=== PATIENT | female | born 1940 | race Caucasian/White ===

== ENCOUNTER 2016-12-03 11:05 | Day surgery (SDC) | payer MEDICARE ==
[~2016-12-03 11:05] MED LIST: Acetaminophen TAB* 325 MG PO PRN; Buffered Lidocaine 1% SYRIN* 3 ML/SYR SYRINGE INTRADERM ONE
[2016-12-03] MEDS ORDERED: Midazolam* 1 MG/ML 2 ML VIAL (2 MG) ONE ×2 (13:05→13:28)
[2016-12-03 13:46] VITALS: BP 159/56
[2016-12-03] MEDS ORDERED: Tetracaine 0.5% OPTH.SOL 4 ML* 1 DROP BTL ONE (13:48)
[2016-12-03] MEDS ORDERED: Cyclopentolate 1% OPTH.SOL* 2 ML BTL ONE (13:48)
[2016-12-03] MEDS ORDERED: Lidocaine 1% MPF* 2 ML VIAL ONE (13:48)
[2016-12-03] MEDS ORDERED: Neomycin/Polymy/Dex OPHTH.OIN* 3.5 GM ONE (13:48)
[2016-12-03] MEDS ORDERED: Tropicamide 1% OPTH.SOL* BTL ONE (13:48)
[2016-12-03] MEDS ORDERED: Flurbiprofen 0.03% OPTH.SOL* 2.5 ML BTL ONE (13:48)
[2016-12-03] MEDS ORDERED: Phenylephrine 2.5% OPTH.SOL* 2 ML BTL ONE (13:48)
--- NOTE | 2016-12-04 01:48 | OP ---
DATE OF OPERATION: 12/03/[address] [facility] DATE OF : 40 SURGEON: Dr. Cody Alford. VERIFICATION ENGINEER: None. ANESTHESIA: Topical with intravenous sedation. PRE-OP DIAGNOSIS: Cataract, right eye. POST-OP DIAGNOSIS: Cataract, right eye. OPERATIVE PROCEDURE: Phacoemulsification and cataract extraction with posterior chamber intraocular lens implant, right eye. COMPLICATIONS: None. BLOOD LOSS: None. DESCRIPTION OF PROCEDURE: The patient was brought to the operating room and received a small amount of intra-venous sedation. A drop of Tetracaine was placed in her right eye. She was prepped and draped in the usual sterile fashion for ophthalmic surgery and attention was directed to the right eye where a speculum was placed. A paracentesis was created at the 11 o'clock position and 0.1 cc of 1 percent preservative-free Lidocaine was injected into the anterior chamber followed by DisCoVisc. The eye was digitally stabilized while a 2.75 mm keratome was used to create a triplanar clear corneal incision at the 9 o'clock position. A continuous curvilinear capsulorrhexis was created with a cystotome and Utrata forceps. BSS on a cannula was used to hydrodissect the lens from the capsule. Phacoemulsification was performed in a divide-and- conquer technique to create four fragments which were removed. Residual cortical material was removed with irrigation and aspiration. DisCoVisc was used to inflate the capsular bag and an [id number] 17.5 diopter lens was folded and inserted into the capsular bag. DisCoVisc was removed using irrigation and aspiration. BSS on a cannula was used to hydrate the corneal stroma and seal the wound. At the end of the case the pupil was round and the lens was centered. The eye was of normal pressure and the wound was water tight. The speculum was removed and topical Maxitrol ointment was placed on the surface of the eye. The eye was closed, patched and shielded and the patient was sent to the recovery room in stable condition with post operative instructions and follow-up appointment given. [id number]/[facility] #: [id number] ALLEY
== END 2016-12-03 13:56 | disposition home or self-care (01) ==
LOC: OREAST 11:05
PROVIDERS: ATTEND Ophthalmology
DX: H25.11 Age-related nuclear cataract, right eye (principal); I10 Essential (primary) hypertension
CPT/HCPCS: A9270-GY; J2250; V2632

== ENCOUNTER 2019-07-27 13:08 | Inpatient (IN) | payer MEDICARE ==
--- NOTE | 2019-07-27 13:21 | ED ---
Complex/Multi-Sys Presentation - HPI Summary HPI Summary: This pt is a 79 y/o [facility] c /o feeling ill x4 days. Pt reports she has been watching her grandchildren and they all have the flu. She states she has SOB with fevers, max temperature of 100.4F. Additionally reports intermittent back pain. Denies sore throat. Per nurse's note, pt was at [facility] and was referred to the ED for low O2 sat. Her medications include Atenolol and medications for UC. She did receive the flu shot this year. Denies tobacco, drug, and alcohol use. Allergic to "something in Imodium." Medications reviewed. Allergies noted. - History Of Current Complaint Time Seen by Provider: 07/27/19 13:15 Hx Obtained From: Patient Onset/Duration: Lasting Days - 4, Still Present Timing: Days - 4 Severity Currently: Moderate Location: Negative Aggravating Factor(s): nothing Alleviating Factor(s): nothing Associated Signs And Symptoms: Positive: SOB, Fever. Negative: Other - NEGATIVE : sore throat - Allergies/Home Medications Allergies/Adverse Reactions: Allergies Allergy/AdvReac Type Severity Reaction Status Date / Time atropine [From Lomotil] Allergy Shakes Verified 07/27/19 13:36 bee venom protein (honey bee) Allergy Anaphylatic Verified 07/27/19 13:36 Shock diphenoxylate [From Lomotil] Allergy Shakes Verified 07/27/19 13:36 Home Medications: Home Medications Atenolol TAB* [Tenormin TAB* 25 MG] 25 mg PO QAM 07/27/19 [History Confirmed ] Atenolol TAB* [Tenormin TAB* 25 MG] 50 mg PO QPM 07/27/19 [History Confirmed ] Ranitidine TAB (NF) [Zantac TAB (NF)] 150 mg PO BID 07/27/19 [History Confirmed 07/27/19] sulfaSALAzine TAB* [Azulfidine TAB*] 1,000 mg PO TID 07/27/19 [History Confirmed 07/27/19] PMH/Surg Hx/FS Hx/Imm Hx Cardiovascular History: Reports: Hx Hypertension - controlled with medication, Other Cardiovascular Problems/Disorders - COPD GI History: Reports: Hx Gastroesophageal Reflux Disease, Other GI Disorders - ulcerative colitis Musculoskeletal History: Reports: Hx Arthritis - generalized, Other Musculoskeletal History - Rsvhlnb-Gknje-Jycab disease Sensory History: Reports: Hx Cataracts, Hx Contacts or Glasses - reading, but not using currently, waiting for cataract surgery, Hx Hearing Aid - does not always wear Denies: Hx Glaucoma Opthamlomology History: Reports: Hx Cataracts, Hx Contacts or Glasses - reading , but not using currently, waiting for cataract surgery Denies: Hx Glaucoma Neurological History: Reports: Hx Nerve Disease - Uqjivxu-Bzxly-Wcdit disease Psychiatric History: Reports: Hx Anxiety - does not take medication - Cancer History Cancer Type, 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 cholecystectomy. appendectomy. unsure of dates for these surgeries Hx Anesthesia Reactions: No - Immunization History Date of Tetanus Vaccine: UNK Date of Influenza Vaccine: 2012 Infectious Disease History: No Infectious Disease History: Reports: Hx Shingles - 2012 Denies: Traveled Outside the [place] in Last 30 Days - Family History Known Family History: Positive: Cardiac Disease Family History: Cancer - Social History Alcohol Use: None Substance Use Type: Reports: None Smoking Status (MU): Never Smoked Tobacco Review of Systems Positive: Fever Negative: Sore Throat Positive: Shortness Of Breath Musculoskeletal: Other - POSITIVE: back pain All Other Systems Reviewed And Are Negative: Yes Physical Exam - Summary Physical Exam Summary: Constitutional: Well-developed, Well-nourished, Alert. (-) Distressed Skin: Warm, Dry HENT: Normocephalic; Atraumatic Eyes: Conjunctiva normal Neck: Musculoskeletal ROM normal neck. (-) JVD, (-) Stridor, (-) Tracheal deviation Cardio: Rhythm regular, rate normal, Heart sounds normal; Intact distal pulses; The pedal pulses are 2+ and symmetric. Radial pulses are 2+ and symmetric. (-) Murmur Pulmonary/Chest wall: Poor inspiratory effort. Coarse lung sounds on the left side. Patient is saturating at 85% on room air. She is speaking in full sentences. Abd: Soft, (-) tenderness, (-) Distension, (-) Guarding, (-) Rebound Musculoskeletal: (-) Edema Lymph: (-) Cervical adenopathy Neuro: Alert, Oriented x3 Psych: Mood and affect Normal Triage Information Reviewed: Yes Vital Signs On Initial Exam: Initial Vitals Temp Pulse Resp BP Pulse Ox 100.0 F 59 18 0/0 86 07/27/19 13:12 07/27/19 13:12 07/27/19 13:12 07/27/19 13:12 07/27/19 13:12 Vital Signs Reviewed: Yes Procedures - Sedation Patient Received Moderate/Deep Sedation with Procedure: No Diagnostics - Vital Signs Vital Signs Temp Pulse Resp BP Pulse Ox 07/27/19 13:12 100.0 F 59 18 0/0 86 - Laboratory Result Diagrams: 07/27/19 13:43 07/27/19 13:42 Lab Statement: Any lab studies that have been ordered have been reviewed, and results considered in the medical decision making process. - Radiology Chest XR Radiology Interpretation Completed By: Radiologist Summary of Radiographic Findings: IMPRESSION: No active cardiopulmonary disease is noted. Dr. Oseguera has reviewed this report. - CT Chest CTA CT Interpretation Completed By: Radiologist Summary of CT Findings: IMPRESSION: No pulmonary embolus or aortic dissection is noted. Peribronchial thickening with areas of nodular consolidation are noted throughout the lung bases bilaterally worse on the left on the right as well as in the lingula and right middle lobe. The possibility of bronchopneumonia should BE considered. Calcified granuloma in the right middle lobe. Dr. Oseguera has reviewed this report. - EKG 13:29 Cardiac Rate: Bradycardia - at 58 bpm EKG Rhythm: Sinus Bradycardia Summary of EKG Findings: EKG at 1329 shows sinus bradycardia at a rate of 58 bpm. No evidence of ischemia. Complex Multi-Symp Course/Dx Course Of Treatment: Patient is here with URI symptoms and hypoxemia. Patient was placed on oxygen which is atypical for her. Patient had a chest x-ray which showed no acute abnormality. Patient had blood work performed which was overall grossly unremarkable. Due to her hypoxemia, a CTA was performed which did not show any PE but did show an underlying bronchopneumonia. Patient was given Rocephin and azithromycin and admitted to the hospitalist. - Diagnoses Provider Diagnoses: Pneumonia, Hypoxemia - Physician Notifications Discussed Care Of Patient With: Dell El - hospitalist Time Discussed With Above Provider: 15:59 Instructed by Provider To: Admit As Inpatient Discharge ED - Sign-Out/Discharge Documenting (check all that apply): Patient Departure - Admit to [facility] - Discharge Plan Condition: Stable Disposition: ADMITTED TO [facility] - Billing Disposition and Condition Condition: STABLE Disposition: Admitted to [facility] - Attestation Statements Document Initiated by Jeny: Yes Documenting Scribe: Karma Valdez Provider For Whom Jeny is Documenting (Include Credential): Ancelmo Oseguera MD Scribe Attestation: Karma Patel, scribed for Ancelmo Oseguera MD on 07/27/19 at 1730. Scribe Documentation Reviewed: Yes Provider Attestation: The documentation as recorded by the Karma lopez accurately reflects the service I personally performed and the decisions made by me, Ancelmo Oseguera MD Status of Scribe Document: Viewed
[2019-07-27 14:08] LABS: Hematocrit 43 % (35-47); Hemoglobin 14.6 g/dL (12.0-16.0); Mean Corpuscular HGB Conc 34 g/dL (31-36); Mean Corpuscular Hemoglobin 30 pg (27-31); Mean Corpuscular Volume 87 fL (80-97); Red Blood Count 4.89 10^6 /uL (3.70-4.87); Red Cell Distribution Width 14 % (10-15); White Blood Count 5.4 10^3/uL (3.5-10.8)
[2019-07-27 14:13] LABS: ABS Lymphocytes 0.4 10^3/ul (1.0-4.8); ABS Monocytes 0.4 10^3/ul (0-0.8); ABS Neutrophils 4.6 10^3/ul (1.5-7.7); Lymphocyte % 6.5 %
[2019-07-27 14:16] LABS: Albumin 4.4 g/dL (3.2-5.2); Albumin/Globulin Ratio 1.6 (1-3); BUN/Creatinine Ratio 27.4 (8-20); EGFR African American 112.4 (>60); EGFR Non-African American 92.9 (>60); Globulin 2.8 g/dL (2-4); Potassium 4.3 mmol/L (3.5-5.0); Total Bilirubin 1.2 mg/dL (0.2-1.0); Total Protein 7.2 g/dL (6.4-8.9); Troponin I 0.01 ng/mL (<0.03)
[2019-07-27 14:19] LABS: Influenza A Molecular NEGATIVE (Negative); Influenza B Molecular NEGATIVE (Negative)
[2019-07-27 14:33] LABS: Mean Platelet Volume 8.6 fL (7.4-10.4); Platelet Count 78 10^3/uL (150-450)
[2019-07-27] MEDS ORDERED: Iohexol 350* (CONTRAST) 500 ML MDV IV ONE (14:56)
[2019-07-27] MEDS ORDERED: NS 0.9% 1000 ML** 1,000 ML IV ONE (15:00)
[2019-07-27] MEDS ORDERED: Albuterol 2.5 MG/3 ML NEB.SOL* (0.083%) INH ONE (15:27)
[2019-07-27] MEDS ORDERED: Azithromycin 500 mg/250 ml NS 500 MG/250 ML BAG IVPB ONE (15:56)
[2019-07-27] MEDS ORDERED: cefTRIAXone(*) 1 GM in NS 0.9% 50 ML* 50 ML IVPB ONE (15:56)
[2019-07-27] MEDS ORDERED: Ondansetron INJ* 2 MG/ML VIAL IV PRN (16:59)
[2019-07-27] MEDS ORDERED: Al Hydrox/Mg Hydrox/Simet LIQ* 30 ML UDC PO PRN (16:59)
[2019-07-27] MEDS ORDERED: Senna TAB 8.6 mg* TAB PO PRN (16:59)
[2019-07-27] MEDS ORDERED: Acetaminophen TAB* 325 MG PO PRN (16:59)
[2019-07-27] MEDS ORDERED: Acetaminophen TAB* 325 MG PO ONE (17:02)
[2019-07-27 18:52] LABS: Urine Appearance Cloudy; Urine Bilirubin Negative (Negative); Urine Blood Negative (Negative); Urine Color Amber; Urine Glucose Negative (Negative); Urine Ketones 1+ (Negative); Urine Nitrite Negative (Negative); Urine Protein 1+(30 mg/dL) (Negative); Urine Urobilinogen Negative (Negative)
[2019-07-27 18:58] LABS: Urine Bacteria 1+ (Absent); Urine Red Blood Cell Absent (Absent); Urine Squamous Epithelial Cell Present (Absent); Urine White Blood Cell Absent (Absent)
[2019-07-27] MEDS: Enoxaparin(*) 40 MG/0.4 ML SYR SUBCUT SCH (19:27)
--- NOTE | 2019-07-27 21:34 | HP ---
CC: Dr. Fitzpatrick* ADMISSION HISTORY AND PHYSICAL: DATE OF ADMISSION: 07/27/19 PROVIDER: LUCAS Caldera ATTENDING PHYSICIAN WHILE IN THE HOSPITAL: Dr. Dell El MD* (dictated by LUCAS Caldera). PRIMARY CARE PROVIDER: Dr. Fitzpatrick. CHIEF COMPLAINT: Shortness of breath. HISTORY OF PRESENT ILLNESS: Mary Buchanan is a 79-year-old white female with a past medical history significant for hypertension, GERD, ulcerative colitis, and Ofrbasd-Dzutd-Bpxwi disease, who presented to urgent care initially today due to shortness of breath. The patient was found to be hypoxic in the office and was advised to proceed to emergency department. The patient remained hypoxic in the emergency department as well, and initially nursing notes demonstrates she had an oxygen saturation 83% on room air. The patient was not initially dyspneic, but was given an albuterol nebulizer and she does feel short of breath after this at the time of my evaluation. The patient told me she had a temperature of 101.4 degrees yesterday at home. She had been feeling symptomatic fever or chills alternatively for the last 3 days. She has had a cough and has been feeling "yucky" for the last 3 days. She has been feeling short of breath and with rib pain with the cough for the last 2 days. She did feel nausea intermittently, but has not vomited and denies diarrhea. She did have a loose bowel movement with mucus today. Her grandchild and great grandchildren live with her and they have all had upper respiratory infections last week, therefore she has had multiple sick contacts. She denies nasal congestion, chest pain, dizziness, lightheadedness, visual changes or abdominal pain. EMERGENCY DEPARTMENT COURSE: The patient arrived to the emergency department. Her temperature was 100.0 degrees Fahrenheit, pulse of 59, respiratory rate 18, oxygen saturation 86% on room air, blood pressure 206/58, later 162/82. She was tachypneic at some point with respiratory rate of 28; however, this has since resolved. She had a CTA, which is negative for pulmonary embolism, but did demonstrate pneumonia and therefore the hospitalists were asked to evaluate the patient for admission. PAST MEDICAL HISTORY: 1. Hypertension. 2. GERD. 3. Ulcerative colitis. 4. Ynesjrr-Oskes-Bipne disease. 5. Heart failure, preserved ejection fraction. 6. Pituitary adenoma, status post pituitectomy. PAST SURGICAL HISTORY: 1. Pituitectomy. 2. Bilateral cataract surgery. 3. Left hip fracture. 4. Appendectomy. 5. Hysterectomy. MEDICATIONS: 1. Ranitidine 150 mg p.o. b.i.d. 2. Sulfasalazine 1000 mg p.o. t.i.d. 3. Atenolol 25 mg p.o. q.a.m., 50 mg p.o. q.p.m. ALLERGIES: 1. Reaction of shakes to LOMOTIL. 2. Anaphylactic shock to honeybees. FAMILY HISTORY: Her mother at age 48 due to cardiovascular disease. Her father at age 62 due to malignant melanoma. Recently, her brother has due to an SD. SOCIAL HISTORY: The patient's grandchild and great grandchildren live with her. She is retired nurse. She is a . She denies smoking, alcohol or illicit drug use. She has never been a smoker. REVIEW OF SYSTEMS: An 11-point review of systems was completed and all pertinent positives and negatives are above in the HPI. All other systems are negative. PHYSICAL EXAMINATION GENERAL: Elderly white female, lying in hospital bed, appearing comfortable, in no acute distress. HEENT: Eyes: PERRL. Sclerae anicteric. ENT: Lips appear dry. NECK: Supple without JVD. LUNGS: Crackles in bilateral lung bases and mid lung peters with rhonchi in the anterior peters. The patient is respiring without use of accessory muscles. CARDIO: Regular rate and rhythm without murmurs, rubs or gallops appreciated. ABDOMEN: Soft, nontender, nondistended. EXTREMITIES: No clubbing, cyanosis or edema. Bilateral lower extremities are in braces. NEURO: The patient is alert and oriented x3. No focal deficits. Able to move all extremities. SKIN: Warm, dry, and intact. DIAGNOSTIC STUDIES/LAB DATA: White blood cell count 5.4, hemoglobin 14.6, hematocrit 43, platelet count 78. Sodium 136, potassium 4.3, chloride 100, carbon dioxide 28, anion gap 8, BUN 17, creatinine 0.62, glucose 126. Lactic acid 1.9, calcium 10, bilirubin 1.2, AST 28, ALT 16. Troponin 0.01. Influenza A negative. Influenza B negative. Chest x-ray: No active cardiopulmonary disease is noted. Chest/thorax CTA: No pulmonary embolism or aortic dissection is noted. Peribronchial thickening with areas of nodular consolidation are noted throughout the lung bases bilaterally, worse on the left than the right as well as lingula in the right middle lobe. Possibility of bronchopneumonia should be considered. Calcified granuloma in the right middle lobe. EKG: Normal sinus rhythm with a rate of 58 beats per minute. No ST elevations or depressions or T-wave inversions. Normal axis. ASSESSMENT AND PLAN: Mary Buchanan is a 79-year-old white female with past medical history significant for heart failure with preserved ejection fraction, Cvcyphu-Hotcr-Zvuoh disease, ulcerative colitis, and hypertension, who presented to the emergency department due to shortness of breath and hypoxemia found at urgent care. The patient will be admitted inpatient for: 1. Acute respiratory failure. The patient is noted to have hypoxia initially at 83% on room air. She is now using 3 L of oxygen and is having good oxygen saturations. She did receive an albuterol nebulizer in the emergency department and my evaluation was after this treatment, and her lungs sounds did still have some crackles and rhonchi, which was consistent with pneumonia found on CTA. Pulmonary embolism has been ruled out. She has received empiric ceftriaxone and azithromycin in the emergency department, I will continue this tomorrow. She does not meet SIRS criteria for her pneumonia at this time, but we will closely monitor her. She was tachypneic, but she does not have leukocytosis and her temperature is not a fever at this point. I will order p.r.n. DuoNeb. The patient already received 1 L of fluid in the emergency department. I do not believe she needs any further fluid at this time. The patient had a negative influenza A and B. 2. Thrombocytopenia. The patient has a platelet count of 78. 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 It is unclear whether she has been diagnosed with a myelodysplastic syndrome. We will monitor this again tomorrow. It is possible that she has a reactive thrombocytopenia to her infection. 3. Hypertension. I will continue the patient's home atenolol. 4. Ulcerative colitis. The patient did have a bowel movement with mucus in it today, however, no blood. She will continue her home sulfasalazine. We will continue to monitor this. 5. Gastroesophageal reflux disease. Continue the patient's home H2A romeo. 6. FEN: The patient does not need any electrolyte depletion. No further fluids are needed at this time; however, we will continue to monitor her blood pressure and if hydration is needed, we will assess at that time. The patient may have regular unrestricted diet. 7. Code status: The patient is a full code. 8. DVT prophylaxis. The patient has a DVT risk score of 3. I will order subcutaneous Lovenox 40 mg. TIME SPENT: This admission took approximately 45 minutes; half of this time was spent at bedside evaluating the patient, discussing plan of care. This case has been reviewed by my attending Dr. Dell El, he agrees with plan of care. LUCAS CALDERA [id number]/[facility] #: [id number] [place]
[2019-07-27] MEDS: Albuterol/Ipratropium NEB.SOL* Albuterol 2.5 MG/Ipratropium 0.5 MG 3 ML INH PRN (23:17)
[2019-07-28 05:41] LABS: ABS Lymphocytes 0.6 10^3/ul (1.0-4.8); ABS Monocytes 0.5 10^3/ul (0-0.8); ABS Neutrophils 4.3 10^3/ul (1.5-7.7); Hematocrit 36 % (35-47); Hemoglobin 12.2 g/dL (12.0-16.0); Lymphocyte % 11.3 %; Mean Corpuscular HGB Conc 34 g/dL (31-36); Mean Corpuscular Hemoglobin 30 pg (27-31); Mean Corpuscular Volume 89 fL (80-97); Mean Platelet Volume 8.9 fL (7.4-10.4); Platelet Count 55 10^3/uL (150-450); Red Blood Count 4.06 10^6 /uL (3.70-4.87); Red Cell Distribution Width 14 % (10-15); White Blood Count 5.4 10^3/uL (3.5-10.8)
[2019-07-28 05:48] LABS: BUN/Creatinine Ratio 28.1 (8-20); Calcium 8.9 mg/dL (8.6-10.3); EGFR African American 108.3 (>60); EGFR Non-African American 89.5 (>60); Potassium 3.8 mmol/L (3.5-5.0)
[2019-07-28] MEDS: cefTRIAXone(*) 1 GM in NS 0.9% 50 ML* 50 ML IVPB SCH (08:14)
[2019-07-28] MEDS: Azithromycin IV(*) 250 MG in NS 0.9% 250 ML* 250 ML IVPB SCH (09:10)
[2019-07-28 09:53] LABS: Total Bilirubin 1.3 mg/dL (0.2-1.0)
[2019-07-28] MEDS: Albuterol/Ipratropium NEB.SOL* Albuterol 2.5 MG/Ipratropium 0.5 MG 3 ML INH PRN (10:40)
--- NOTE | 2019-07-28 11:28 | PN ---
Subjective Date of Service: 07/28/19 Interval History: Patient feels her shortness of breath and cough are not improved. She still feels tired. Her cough is not productive. She denies fever/chills, chest pain, abd pain. Objective Active Medications: Acetaminophen (Tylenol Tab*) 650 mg PO Q4H PRN PRN Reason: MILD PAIN or TEMP > 100.4 Last Admin: 07/27/19 23:09 Dose: 650 mg Al Hydrox/Mg Hydrox/Simethicone (Maalox Plus*) 30 ml PO Q6H PRN PRN Reason: INDIGESTION Albuterol/Ipratropium (Duoneb (Albuterol 2.5 Mg/Ipratropium 0.5 Mg)) 1 neb INH Q4H PRN PRN Reason: SOB/WHEEZING Last Admin: 07/28/19 10:40 Dose: 1 neb Enoxaparin Sodium (Lovenox(*)) 40 mg SUBCUT Q24H COUNT INCLUDES THE [facility] Last Admin: 07/27/19 19:27 Dose: 40 mg Azithromycin 250 mg/ Sodium (Chloride) 250 mls @ 250 mls/hr IVPB Q24H S[place] Last Admin: 07/28/19 09:10 Dose: 250 mls/hr Ceftriaxone Sodium 1 gm/ (Sodium Chloride) 50 mls @ 100 mls/hr IVPB Q24H COUNT INCLUDES THE [facility] Last Admin: 07/28/19 08:14 Dose: 100 mls/hr Ondansetron HCl (Zofran Inj*) 4 mg IV Q4H PRN PRN Reason: NAUSEA/VOMITING Last Admin: 07/27/19 17:41 Dose: 4 mg Senna (Senokot 8.6 Mg Tab*) 1 tab PO BID PRN PRN Reason: CONSTIPATION Vital Signs - 8 hr 07/28/19 07/28/19 07/28/19 03:55 07:35 10:42 Temperature 98.7 F 99.5 F Pulse Rate 83 92 90 Respiratory 18 24 17 Rate Blood Pressure 102/31 114/44 (mmHg) O2 Sat by Pulse 93 93 91 Oximetry Oxygen Devices in Use Now: Nasal Cannula Appearance: Elderly white female, laying in hospital bed, appearing comfortable and in NAD Eyes: No Scleral Icterus, - - PERRL Ears/Nose/Mouth/Throat: Mucous Membranes Moist Neck: Trachea Midline Respiratory: Symmetrical Chest Expansion and Respiratory Effort, - - bilateral lung base crackles and wheezing; wheezing anteriorly throughout as well; not using accessory muscles with respiraitons Cardiovascular: NL Sounds; No Murmurs; No JVD, RRR Abdominal: - - abd soft, nontender, nondistended Extremities: No Edema, No Clubbing, Cyanosis Skin: No Rash or Ulcers Neurological: Alert and Oriented x 3, NL Muscle Strength and Tone Result Diagrams: 07/28/19 04:27 07/28/19 04:27 Microbiology and Other Data: Microbiology 07/27/19 18:40 Legionella Urinary Antigen - Final Urine Negative Legionella Antigen Streptococcus pneumoniae Ag Screen - Final Negative S. pneumo Antigen Assess/Plan/Problems-Billing Assessment: 79 yo female with PMHx HTN, UC, Xbsqted-Shkqe-Eedwr disease presents with shortness of breath and found to have pneumonia. - Patient Problems (1) Pneumonia Current Visit: Yes Status: Acute Code(s): J18.9 - PNEUMONIA, UNSPECIFIED ORGANISM SNOMED Code(s): 535370526 Comment: -CAP with multiple sick contacts at home. -Influenza negative, urine antigens negative for strep pneumo and legionella, unable to obtain sputum culture -fever to 100.6 overnight, patient does not meet SIRS criteria -remains hypoxic today -continue ceftriaxone and azithromycin -patient does have some wheezing on exam; scheduled duonebs instead of prn -prn robitussin (2) HTN (hypertension) Current Visit: Yes Status: Acute Code(s): I10 - ESSENTIAL (PRIMARY) HYPERTENSION SNOMED Code(s): 14541060 Comment: -continue atenolol (3) Iyvbzkg-Zsepa-Vxyss disease Current Visit: Yes Status: Acute Comment: -supportive care (4) Ulcerative colitis Current Visit: Yes Status: Acute Code(s): K51.90 - ULCERATIVE COLITIS, UNSPECIFIED, WITHOUT COMPLICATIONS SNOMED Code(s): 26924561 Comment: -continue home sulfasalazine (5) (HFpEF) heart failure with preserved ejection fraction Current Visit: Yes Status: Acute Code(s): I50.30 - UNSPECIFIED DIASTOLIC ( CONGESTIVE) HEART FAILURE SNOMED Code(s): 513489488 Comment: -patient is euvolemic (6) DVT prophylaxis Current Visit: Yes Status: Acute Code(s): Z29.9 - ENCOUNTER FOR PROPHYLACTIC MEASURES, UNSPECIFIED SNOMED Code(s): 797580600 Comment: -lovenox (7) Full code status Current Visit: Yes Status: Acute Code(s): Z78.9 - OTHER SPECIFIED HEALTH STATUS SNOMED Code(s): 812502630 Status and Disposition: anticipate d/c home when medically stable
[2019-07-28] MEDS: Potassium Chlor TAB* 10 MEQ TAB.ER PO SCH (13:12)
[2019-07-28] MEDS: Magnesium Oxide TAB* 400 MG PO SCH (13:12)
[2019-07-28] MEDS: sulfaSALAzine TAB* 500 MG PO SCH ×2 (13:13→21:40)
[2019-07-28] MEDS ORDERED: Albuterol/Ipratropium NEB.SOL* Albuterol 2.5 MG/Ipratropium 0.5 MG 3 ML INH PRN (14:42)
[2019-07-28] MEDS: Enoxaparin(*) 40 MG/0.4 ML SYR SUBCUT SCH (17:00)
[2019-07-28] MEDS ORDERED: Atenolol TAB* 25 MG PO SCH (18:00)
[2019-07-28] MEDS: Atenolol TAB* 25 MG PO SCH (21:39)
[2019-07-28] MEDS: Famotidine TAB* 20 MG PO SCH (21:39)
[2019-07-29] MEDS: cefTRIAXone(*) 1 GM in NS 0.9% 50 ML* 50 ML IVPB SCH (08:15)
[2019-07-29] MEDS: Magnesium Oxide TAB* 400 MG PO SCH (08:16)
[2019-07-29] MEDS: Cholecalciferol TAB* 1000 UNITS PO SCH (08:17)
[2019-07-29] MEDS: Famotidine TAB* 20 MG PO SCH ×2 (08:17→20:57)
[2019-07-29] MEDS: Potassium Chlor TAB* 10 MEQ TAB.ER PO SCH (08:17)
[2019-07-29] MEDS: sulfaSALAzine TAB* 500 MG PO SCH ×3 (08:17→16:11)
[2019-07-29] MEDS: Atenolol TAB* 25 MG PO SCH ×2 (08:18→20:58)
[2019-07-29] MEDS ORDERED: Atenolol TAB* 25 MG PO SCH (09:00)
[2019-07-29] MEDS: Azithromycin IV(*) 250 MG in NS 0.9% 250 ML* 250 ML IVPB SCH (09:01)
[2019-07-29] MEDS: Lactobacillus Acidophilus* 1 TAB PO SCH (12:25)
[2019-07-29] MEDS: predniSONE TAB* 20 MG PO SCH (12:25)
[2019-07-29] MEDS: guaiFENesin 100 mg/5 ml LIQ unit dose cup PO PRN ×2 (16:11→20:57)
[2019-07-29] MEDS: Enoxaparin(*) 40 MG/0.4 ML SYR SUBCUT SCH (16:12)
--- NOTE | 2019-07-29 17:23 | PN ---
Subjective Date of Service: 07/29/19 Interval History: Patient is feeling somewhat better today. Patient is feeling persistently SOB and feels tight with her breathing. This improved with breathing treatment and steroids. Patient has been having loose bowel movements without blood, abdominal pain, or tenderness. Patient denies CP, Dizziness, N/V, dysuria, or other pain. Family History: Unchanged from Admission Social History: Unchanged from Admission Past Medical History: Unchanged from Admission Objective Active Medications: Acetaminophen (Tylenol Tab*) 650 mg PO Q4H PRN PRN Reason: MILD PAIN or TEMP > 100.4 Last Admin: 07/27/19 23:09 Dose: 650 mg Al Hydrox/Mg Hydrox/Simethicone (Maalox Plus*) 30 ml PO Q6H PRN PRN Reason: INDIGESTION Albuterol/Ipratropium (Duoneb (Albuterol 2.5 Mg/Ipratropium 0.5 Mg)) 1 neb INH Q6H PRN PRN Reason: SOB/WHEEZING Last Admin: 07/29/19 12:08 Dose: 1 neb Atenolol (Tenormin Tab*) 25 mg PO BID [facility] Last Admin: 07/29/19 08:18 Dose: Not Given Cholecalciferol (Vitamin D Tab*) 5,000 units PO DAILY [facility] Last Admin: 07/29/19 08:17 Dose: 5,000 units Enoxaparin Sodium (Lovenox(*)) 40 mg SUBCUT Q24H [facility] Last Admin: 07/29/19 16:12 Dose: 40 mg Famotidine (Pepcid Tab*) 20 mg PO BID [facility]; Protocol Last Admin: 07/29/19 08:17 Dose: 20 mg Guaifenesin (Robitussin 100 Mg/5ml Liq) 5 ml PO Q4H PRN PRN Reason: COUGH Last Admin: 07/29/19 16:11 Dose: 5 ml Azithromycin 250 mg/ Sodium (Chloride) 250 mls @ 250 mls/hr IVPB Q24H [facility] Last Admin: 07/29/19 09:01 Dose: 250 mls/hr Ceftriaxone Sodium 1 gm/ (Sodium Chloride) 50 mls @ 100 mls/hr IVPB Q24H [facility] Last Admin: 07/29/19 08:15 Dose: 100 mls/hr Lactobacillus Rhamnosus (Lactobacillus Acidophilus*) 1 tab PO DAILY [facility] Last Admin: 07/29/19 12:25 Dose: 1 tab Magnesium Oxide (Magox 400 Tab*) 200 mg PO DAILY [facility] Last Admin: 07/29/19 08:16 Dose: 200 mg Ondansetron HCl (Zofran Inj*) 4 mg IV Q4H PRN PRN Reason: NAUSEA/VOMITING Last Admin: 07/27/19 17:41 Dose: 4 mg Potassium Chloride (Klor Con Er Tab*) 10 meq PO DAILY [facility] Last Admin: 07/29/19 08:17 Dose: 10 meq Prednisone (Deltasone Tab*) 40 mg PO DAILY [facility] Last Admin: 07/29/19 12:25 Dose: 40 mg Senna (Senokot 8.6 Mg Tab*) 1 tab PO BID PRN PRN Reason: CONSTIPATION Sulfasalazine (Azulfidine Tab*) 1,000 mg PO TID WITH MEALS [facility] Last Admin: 07/29/19 16:11 Dose: 1,000 mg Vital Signs - 8 hr 07/29/19 07/29/19 07/29/19 10:12 11:11 12:22 Temperature 98.2 F Pulse Rate 85 82 Respiratory 18 15 Rate Blood Pressure 135/62 (mmHg) O2 Sat by Pulse 91 91 94 Oximetry 07/29/19 15:15 Temperature 98.5 F Pulse Rate 72 Respiratory 18 Rate Blood Pressure 128/39 (mmHg) O2 Sat by Pulse 92 Oximetry Oxygen Devices in Use Now: None Appearance: Patient is a 79yo female who appears stated age and is sitting in the bed in [facility]. Eyes: No Scleral Icterus, PERRLA Ears/Nose/Mouth/Throat: NL Teeth, Lips, Gums, Clear Oropharnyx, Mucous Membranes Moist Neck: NL Appearance and Movements; NL JVP, Trachea Midline Respiratory: Symmetrical Chest Expansion and Respiratory Effort, - - Slight expiratory wheezing and prolonged expiratory phase. Decreased air exchange. Cardiovascular: NL Sounds; No Murmurs; No JVD, RRR, No Edema Abdominal: NL Sounds; No Tenderness; No Distention, No Hepatosplenomegaly Lymphatic: No Cervical Adenopathy Extremities: No Edema, No Clubbing, Cyanosis Skin: No Rash or Ulcers, No Nodules or Sclerosis Neurological: Alert and Oriented x 3, NL Sensation, NL Gait, NL Muscle Strength and Tone, - - CN II-XII intact. Result Diagrams: 07/28/19 04:27 07/28/19 04:27 Microbiology and Other Data: Microbiology 07/27/19 18:40 Legionella Urinary Antigen - Final Urine Negative Legionella Antigen Streptococcus pneumoniae Ag Screen - Final Negative S. pneumo Antigen Assess/Plan/Problems-Billing Assessment: 79 yo female with PMHx HTN, UC, Xgslquo-Foppl-Nzujl disease presents with shortness of breath and found to have pneumonia. - Patient Problems (1) Pneumonia Current Visit: Yes Status: Acute Code(s): J18.9 - PNEUMONIA, UNSPECIFIED ORGANISM SNOMED Code(s): 848693853 Comment: -CAP with multiple sick contacts at home. -Influenza negative, urine antigens negative for strep pneumo and legionella, unable to obtain sputum culture - Remains hypoxic today with activity and SOB - Continue ceftriaxone and azithromycin - Persistent wheezing on exam, start steroids and continue scheduled duonebs. - PRN robitussin - Start Probiotics for antibiotic associated diarrhea. (2) Qkuifgd-Kksdg-Zgrkz disease Current Visit: Yes Status: Acute Comment: - Supportive care - Foot Braces (3) HTN (hypertension) Current Visit: Yes Status: Acute Code(s): I10 - ESSENTIAL (PRIMARY) HYPERTENSION SNOMED Code(s): 76670970 Comment: - Normotensive - Continue atenolol (4) (HFpEF) heart failure with preserved ejection fraction Current Visit: Yes Status: Acute Code(s): I50.30 - UNSPECIFIED DIASTOLIC ( CONGESTIVE) HEART FAILURE SNOMED Code(s): 639380287 Comment: - No signs of exacerbation. - Appears Euvolemic (5) Ulcerative colitis Current Visit: Yes Status: Acute Code(s): K51.90 - ULCERATIVE COLITIS, UNSPECIFIED, WITHOUT COMPLICATIONS SNOMED Code(s): 45078132 Comment: - Continue Sulfasalazine - Diarrhea very unlikely related to flare. (6) DVT prophylaxis Current Visit: Yes Status: Acute Code(s): Z29.9 - ENCOUNTER FOR PROPHYLACTIC MEASURES, UNSPECIFIED SNOMED Code(s): 619144497 Comment: - Lovenox (7) Full code status Current Visit: Yes Status: Acute Code(s): Z78.9 - OTHER SPECIFIED HEALTH STATUS SNOMED Code(s): 888110408 Status and Disposition: anticipate d/c home when medically stable
[2019-07-29] MEDS: Bismuth Subsalicylate* 524 MG/30 ML BTL PO PRN (20:58)
[2019-07-30 05:12] LABS: ABS Lymphocytes 0.3 10^3/ul (1.0-4.8); ABS Monocytes 0.1 10^3/ul (0-0.8); ABS Neutrophils 1.5 10^3/ul (1.5-7.7); Hematocrit 34 % (35-47); Hemoglobin 11.4 g/dL (12.0-16.0); Lymphocyte % 13.9 %; Mean Corpuscular HGB Conc 34 g/dL (31-36); Mean Corpuscular Hemoglobin 29 pg (27-31); Mean Corpuscular Volume 86 fL (80-97); Mean Platelet Volume 9.1 fL (7.4-10.4); Platelet Count 53 10^3/uL (150-450); Red Blood Count 3.91 10^6 /uL (3.70-4.87); Red Cell Distribution Width 13 % (10-15)
[2019-07-30 05:26] LABS: BUN/Creatinine Ratio 35.7 (8-20); EGFR African American 176.1 (>60); EGFR Non-African American 145.5 (>60); Magnesium 2.1 mg/dL (1.9-2.7); Potassium 4.2 mmol/L (3.5-5.0)
[2019-07-30] MEDS: Bismuth Subsalicylate* 524 MG/30 ML BTL PO PRN (07:14)
[2019-07-30 07:48] VITALS: BP 155/50
[2019-07-30] MEDS: cefTRIAXone(*) 1 GM in NS 0.9% 50 ML* 50 ML IVPB SCH (07:52)
[2019-07-30] MEDS: Famotidine TAB* 20 MG PO SCH (07:57)
[2019-07-30] MEDS: Lactobacillus Acidophilus* 1 TAB PO SCH (07:57)
[2019-07-30] MEDS: Magnesium Oxide TAB* 400 MG PO SCH (07:58)
[2019-07-30] MEDS: Atenolol TAB* 25 MG PO SCH (07:58)
[2019-07-30] MEDS: Potassium Chlor TAB* 10 MEQ TAB.ER PO SCH (07:58)
[2019-07-30] MEDS: predniSONE TAB* 20 MG PO SCH (07:58)
[2019-07-30] MEDS: Cholecalciferol TAB* 1000 UNITS PO SCH (08:03)
[2019-07-30] MEDS: sulfaSALAzine TAB* 500 MG PO SCH (08:03)
[2019-07-30] MEDS: Azithromycin IV(*) 250 MG in NS 0.9% 250 ML* 250 ML IVPB SCH (09:01)
--- NOTE | 2019-07-31 04:28 | DS ---
CC: Dr. Fitzpatrick; Dr. Dell El* DISCHARGE SUMMARY: DATE OF ADMISSION: 07/27/19 DATE OF DISCHARGE: 07/30/19 PRIMARY CARE PROVIDER: Dr. Fitzpatrick. MY ATTENDING WHILE IN THE HOSPITAL: Dr. Dell El* (dictated by LUCAS Mary). PRIMARY DISCHARGE DIAGNOSES: 1. Pneumonia, possible chronic obstructive pulmonary disease exacerbation. 2. Acute hypoxic respiratory failure, resolved. 3. Thrombocytopenia. 4. Leukopenia. 5. Anemia. SECONDARY DISCHARGE DIAGNOSES: 1. Thqcfgu-Dfbch-Jppue disease. 2. Ulcerative colitis, quiescent. 3. Gastroesophageal reflux disease. 4. Hypertension. 5. Heart failure with preserved ejection fraction. 6. Pituitary adenoma, status post pituitectomy. STUDIES DONE WHILE IN THE HOSPITAL: Chest x-ray from 07/27/19 read as no active cardiopulmonary disease. Chest thorax CTA from 07/27/19 read as no pulmonary embolism or aortic dissection, no peribronchial thickening of the area , did not reveal consolidation, wheezing throughout the lung bases bilaterally, worse on the left than the right as well as lingula of the right middle lobe. Possibly, bronchial pneumonia should be considered. Calcified granuloma in the right middle lobe. MEDICATIONS AT DISCHARGE: 1. Atenolol 25 mg p.o. b.i.d. 2. Sulfasalazine 1000 mg p.o. t.i.d. 3. Ranitidine 150 mg p.o. b.i.d. 4. Vitamin D 5000 units p.o. daily. 5. Potassium gluconate 99 mg p.o. daily. 6. Magnesium oxide 800 mg p.o. daily. 7. Tylenol 650 mg p.o. q.4 hours as needed. 8. Azithromycin 250 mg p.o. daily x2. 9. Cefuroxime 500 mg p.o. b.i.d. x8 doses. 10. Lactobacillus acidophilus 1 tab p.o. daily. 11. Prednisone 40 mg p.o. daily x3 doses. 12. Senna 8.6 mg p.o. b.i.d. as needed. 13. Albuterol inhaler 1 puff inhalation q.6 hours as needed. New medications at discharge: 1. Tylenol. 2. Azithromycin. 3. Cefuroxime. 4. Lactobacillus. 5. Prednisone. 6. Senna. 7. Albuterol. Medications discontinued at discharge: None. HOSPITAL COURSE: This is a brief summary of the patient's presentation. For more details, please see the history and physical from LUCAS Caldera on . In brief, the patient is a 79-year-old female with past medical history significant for the above, who presented to the emergency department after being sent in from her primary care doctor's office due to being hypoxic and dyspneic with significant wheezing and elevated temperature. The patient was negative for the flu. The patient had sick contacts with her grandchildren and great grandchildren, but had no other upper respiratory infections. The patient had a CT as above showing possible multifocal pneumonia without pulmonary embolism. The patient was admitted to the hospital, started on antibiotics and inhalers. The patient improved slightly with regards to her oxygenation in the first 2 days of her hospitalization; however, her wheezing did not improve and she still became significantly short of breath on exertion. The patient was then started on third day of hospitalization on prednisone, which significantly improved her ability. Her oxygenation being able to be weaned off of oxygen on to room air with saturations in the high 90s on room air on the day of her discharge and significant improvement in her subjective shortness of breath. The patient developed diarrhea while in the hospital, for which she requires Pepto-Bismol, which was supplied. The patient tells that her diarrhea was improving on the day of her discharge. The patient had thrombocytopenia while in the hospital, which appeared to stabilize at approximately 55 from 78 on admission. The patient on the day of her discharge also had a decreased white blood cell count too. She has a history of leukocytosis and a hemoglobin of 11.4. She has a history of anemia. The patient was discharged to home on 07/30/19. PHYSICAL EXAMINATION ON DAY OF DISCHARGE: General: The patient is a 79-year- old female who appears stated age and sitting comfortably in bed, in no acute distress. Vital Signs: At the time of discharge, temperature 98.1, pulse rate 67, respiratory rate 20, oxygen saturation 93% on room air, blood pressure 135/ 50. HEENT: Head: Normocephalic and atraumatic. Sclerae anicteric. No conjunctival injection. Nasal mucosa moist. Oral mucosa moist. No oropharyngeal erythema, discharge, or exudate. Neck: Supple and nontender. No lymphadenopathy. No carotid bruits auscultated. No JVD. Cardiac: Regular rate and rhythm. No clicks, murmurs, gallops, or rubs. Pulses 2+ in the dorsalis pedis, posterior tibialis, and radial areas. Respiratory: Wheezing heard in the upper lobes, harsh cough heard with deep inspiration. Good air exchange bilaterally. Otherwise, significantly improved from previous exam. Abdomen: Soft, nontender, and nondistended. Bowel sounds present and normoactive in all 4 quadrants. No hepatosplenomegaly. No abdominal bruits auscultated. No hepatojugular reflux. Genitourinary: No suprapubic or CVA tenderness. Skin: Clear and intact. No rashes. Neuro: Cranial nerves II through XII intact. No focal deficits. Alert and oriented x3. Normal gait. Psychiatric: Pleasant and cooperative. DISCHARGE PLAN BY PROBLEM: 1. Acute on chronic hypoxic respiratory failure, resolved likely due to a combination of pneumonia and chronic obstructive pulmonary disease exacerbation. The patient had evidence of pneumonia on her CTA and she was treated with azithromycin and ceftriaxone for this and improved greatly. The patient also had significant wheezing and states she has previously been diagnosed with chronic obstructive pulmonary disease, though it is unclear whether this has ever been confirmed with PFTs. Due to this, the patient was started on prednisone, which all significantly helped her breathing. The patient felt close to her baseline on the day of her discharge and was not needing oxygen. The patient will be continued for a total of 5 days of azithromycin and a total of 7 days of cephalosporin therapy as well as total of 5 days of prednisone, all of which have been prescribed. Again, the patient does not need oxygen at home. 2. Hypertension. The patient will be continued on her atenolol. 3. Pancytopenia. The patient on the last day of her hospitalization developed asymptomatic, decreased white blood cell count, hemoglobin and platelet count. These have all been present before in her history with concern at that time for viral infection that may be the cause of this again; however, the patient is to have a repeat CBC on her followup on 08/03/19 with her primary care provider and at that time, if she has persistent pancytopenia, evaluation by Hematology should be considered. 4. Ulcerative colitis. This is currently quiescent. Continue sulfasalazine. The patient is diuresed, it is likely antibiotic associated. She will continue Pepto- Bismol and lactobacillus. 5. Aynlfkk-Kpine-Nnuxt. Continue supportive care and as needed physical therapy as well as the patient's foot braces. DISPOSITION: Home. CONDITION: Stable. TIME SPENT: Approximately 60 minutes were spent on the discharge of this patient, 30 of which was spent [id number] with the patient obtaining history and physical and discussing treatment plan. LUCAS MARY [id number]/[facility] #: [id number] MTDD
== END 2019-07-30 11:30 | disposition home or self-care (01) | DRG 193 ==
LOC: ED 13:08 → MED 16:59
PROVIDERS: ADMIT Internal Medicine; ATTEND Internal Medicine
DX: J18.9 Pneumonia, unspecified organism (principal); J96.21 Acute and chronic respiratory failure with hypoxia; J44.1 Chronic obstructive pulmonary disease with (acute) exacerbation; J44.0 Chronic obstructive pulmonary disease with (acute) lower respiratory infection; D61.818 Other pancytopenia; K51.90 Ulcerative colitis, unspecified, without complications; I50.32 Chronic diastolic (congestive) heart failure; G60.0 Hereditary motor and sensory neuropathy; K21.9 Gastro-esophageal reflux disease without esophagitis; I11.0 Hypertensive heart disease with heart failure; E89.3 Postprocedural hypopituitarism; R19.7 Diarrhea, unspecified; M15.9 Polyosteoarthritis, unspecified; F41.9 Anxiety disorder, unspecified; Z85.820 Personal history of malignant melanoma of skin; Z88.8 Allergy status to other drugs, medicaments and biological substances; Z91.030 Bee allergy status; Z28.21 Immunization not carried out because of patient refusal
CPT/HCPCS: 36415; 71045; 71275; 80048; 80053; 81003; 81015; 82247; 83605; 83735; 83880; 84484; 85025; 87040; 87070; 87086; 87205; 87899; 93005; 94640; 99284; A9270-GY; J0456; J0696; J1650; J2405; J7512; Q9967

== ENCOUNTER 2021-07-02 15:35 | Inpatient (IN) ==
[2021-07-02 18:15] LABS: ABS Neutrophils 0.7 10^3/ul (1.5-7.7)
[2021-07-02 18:18] LABS: Hematocrit 40 % (35-47); Hemoglobin 13.2 g/dL (12.0-16.0); Mean Corpuscular HGB Conc 33 g/dL (31-36); Mean Corpuscular Hemoglobin 29 pg (27-31); Mean Corpuscular Volume 87 fL (80-97); Red Blood Count 4.58 10^6 /uL (3.70-4.87); Red Cell Distribution Width 14 % (10-15); White Blood Count 1.2 10^3/uL (3.5-10.8)
[2021-07-02 18:29] LABS: ALT 16 U/L (7-52); AST 32 U/L (13-39); Albumin/Globulin Ratio 1.4 (1-3); Alkaline Phosphatase 67 U/L (35-149); Anion Gap 8 mmol/L (2-11); Blood Urea Nitrogen 14 mg/dL (6-24); C Reactive Protein 10.21 mg/L (<8.01); CO2 Carbon Dioxide 29 mmol/L (22-32); Calcium 9.4 mg/dL (8.6-10.3); Chloride 100 mmol/L (101-111); Globulin 2.8 g/dL (2-4); Glucose 94 mg/dL (70-100); Lipase 73 U/L (11.0-82.0); Potassium 4.2 mmol/L (3.5-5.0); Sodium 137 mmol/L (135-145); Total Protein 6.8 g/dL (6.4-8.9); eGFR CKD-EPI 94.6 (>60)
[2021-07-02 19:12] LABS: ABS Lymphocytes 0.3 10^3/ul (1.0-4.8); ABS Monocytes 0.1 10^3/ul (0-0.8); Lymphocyte % 26.5 %; Mean Platelet Volume 8.1 fL (7.4-10.4); Nucleated Red Blood Cells % 0.1; Platelet Count 57 10^3/uL (150-450)
[2021-07-02] MEDS ORDERED: Lactated Ringers 1000 ml BAG 1,000 ML IV ONE (19:42)
[2021-07-02] MEDS ORDERED: Ondansetron 4 mg VIAL 2 MG/ML 2 ml VIAL IV ONE (19:42)
[2021-07-02] MEDS ORDERED: Albuterol HFA INHALER 8 gm MDI INH ONE (21:24)
[2021-07-02] MEDS ORDERED: methylPREDNISolone 125 mg 2 ML VIAL IV ONE (21:24)
[2021-07-02 21:30] LABS: Urine Appearance Clear; Urine Bilirubin Negative (Negative); Urine Blood Negative (Negative); Urine Color Yellow; Urine Glucose Negative (Negative); Urine Ketones 2+ (Negative); Urine Nitrite Negative (Negative); Urine Protein 1+(30 mg/dL) (Negative); Urine Specific Gravity 1.017 (1.002-1.030); Urine Urobilinogen Negative (Negative)
[2021-07-02 21:59] LABS: Urine Bacteria Absent (Absent); Urine Red Blood Cell 1+(3-5/hpf) (Absent); Urine Squamous Epithelial Cell Present (Absent); Urine White Blood Cell 1+(6-10/hpf) (Absent)
[2021-07-03] MEDS ORDERED: Cefepime 2 GM IV - ED ONCE IV ONE (01:00)
[2021-07-03 01:03] LABS: RBC Morphology Normal (Normal)
[2021-07-03 01:20] LABS: Folate > 20.00 ng/mL (5.90-24.80)
[2021-07-03 01:21] LABS: Vitamin B12 677 pg/mL (180-914)
[2021-07-03] MEDS ORDERED: Azithromycin 500 mg/250 mL NS IVPB ONE (01:30)
[2021-07-03 02:41] LABS: Rapid COVID-19 Molecular Detected (Undetected)
[2021-07-03 02:49] LABS: Influenza A Molecular Negative (Negative); Influenza B Molecular Negative (Negative)
[2021-07-03] MEDS ORDERED: Remdesivir 100 mg Vial 200 MG in NS 0.9% 250 ml 210 ML IV ONE (03:54)
[2021-07-03] MEDS ORDERED: Albuterol HFA INHALER 8 gm MDI INH PRN (04:26)
[2021-07-03] MEDS ORDERED: Enoxaparin 40 MG/0.4 ML SYR SUBCUT SCH (05:00)
[2021-07-03 08:13] LABS: Calcium 8.9 mg/dL (8.6-10.3); Potassium 4.2 mmol/L (3.5-5.0); eGFR CKD-EPI 96.6 (>60)
[2021-07-03 08:18] LABS: ABS Lymphocytes 0.2 10^3/ul (1.0-4.8); ABS Neutrophils 0.4 10^3/ul (1.5-7.7); Hematocrit 38 % (35-47); Hemoglobin 12.5 g/dL (12.0-16.0); Lymphocyte % 23.7 %; Mean Corpuscular HGB Conc 34 g/dL (31-36); Mean Corpuscular Hemoglobin 29 pg (27-31); Mean Corpuscular Volume 86 fL (80-97); Mean Platelet Volume 8.2 fL (7.4-10.4); Platelet Count 45 10^3/uL (150-450); Red Blood Count 4.37 10^6 /uL (3.70-4.87); Red Cell Distribution Width 14 % (10-15); White Blood Count 0.6 10^3/uL (3.5-10.8)
[2021-07-03] MEDS ORDERED: Cefepime 2 GM in Dextrose 2 GM/50 ML BAG IV SCH ×2 (09:00→22:00)
[2021-07-03] MEDS: Mometasone/Formoter 100/5 MDI INH SCH ×2 (10:11→19:37)
[2021-07-03] MEDS: Cholecalciferol (VIT D3) 1,000 unit TAB PO SCH (10:14)
[2021-07-03] MEDS: DOXYcycline 100 MG in NS 0.9% 250 ml 250 ML IVPB SCH (21:24)
[2021-07-04] MEDS ORDERED: Azithromycin 500 mg/250 ml NS 500 MG/250 ML BAG IVPB SCH (01:00)
[2021-07-04 05:09] LABS: Albumin 3.8 g/dL (3.2-5.2); CO2 Carbon Dioxide 25 mmol/L (22-32); Calcium 9.3 mg/dL (8.6-10.3); Chloride 104 mmol/L (101-111); Magnesium 1.8 mg/dL (1.9-2.7); Sodium 136 mmol/L (135-145)
[2021-07-04 05:13] LABS: Anion Gap 7 mmol/L (2-11)
[2021-07-04 05:15] LABS: ALT 12 U/L (7-52); Albumin/Globulin Ratio 1.5 (1-3); Alkaline Phosphatase 54 U/L (35-149); Blood Urea Nitrogen 17 mg/dL (6-24); Globulin 2.6 g/dL (2-4); Glucose 106 mg/dL (70-100); Total Protein 6.4 g/dL (6.4-8.9); eGFR CKD-EPI 97.7 (>60)
[2021-07-04 05:31] LABS: ABS Lymphocytes 0.3 10^3/ul (1.0-4.8); ABS Monocytes 0.2 10^3/ul (0-0.8); ABS Neutrophils 0.9 10^3/ul (1.5-7.7); Hematocrit 39 % (35-47); Mean Corpuscular HGB Conc 33 g/dL (31-36); Mean Corpuscular Hemoglobin 29 pg (27-31); Mean Corpuscular Volume 87 fL (80-97); Mean Platelet Volume 8.4 fL (7.4-10.4); Platelet Count 28 10^3/uL (150-450); Red Blood Count 4.52 10^6 /uL (3.70-4.87); Red Cell Distribution Width 14 % (10-15); White Blood Count 1.4 10^3/uL (3.5-10.8)
[2021-07-04 07:07] LABS: Potassium Redraw 3.6 mmol/L (3.5-5.0)
[2021-07-04 07:12] LABS: Phosphorus 2.3 mg/dL (2.5-5.0)
[2021-07-04] MEDS: Mometasone/Formoter 100/5 MDI INH SCH (07:21)
[2021-07-04] MEDS ORDERED: Magnesium Sulf 4 GM/100 ML IV 4,000 MG/100 ML BAG IVPB ONE (08:30)
[2021-07-04] MEDS ORDERED: Remdesivir 100 mg Vial 100 MG in NS 0.9% 250 ml 230 ML IV SCH (09:00)
[2021-07-04] MEDS ORDERED: Potassium Acid Phos 500 mg TAB PO SCH (09:00)
[2021-07-04] MEDS: DOXYcycline 100 MG in NS 0.9% 250 ml 250 ML IVPB SCH (10:14)
[2021-07-04] MEDS: Cholecalciferol (VIT D3) 1,000 unit TAB PO SCH (10:17)
[2021-07-04 13:48] VITALS: BP 168/51
[2021-07-06 16:04] LABS: Albumin/Globulin Ratio 0.91; Total Protein(PEP) 6.3 g/dL (6.3 - 7.9)
== END 2021-07-04 15:40 | disposition home or self-care (01) | DRG 177 ==
LOC: ED 15:35 → SUATTDRO 07-03 00:04 → EDHOLD 07-03 00:04 → MED 07-03 12:42
PROVIDERS: ADMIT Student in an Organized Health Care Education/Training Program; ATTEND Internal Medicine

== ENCOUNTER 2022-04-22 11:19 | Inpatient (IN) ==
[2022-04-22 13:11] LABS: Hematocrit 38 % (35-47); Hemoglobin 12.1 g/dL (12.0-16.0); Mean Corpuscular HGB Conc 32 g/dL (31-36); Mean Corpuscular Hemoglobin 29 pg (27-31); Mean Corpuscular Volume 90 fL (80-97); Red Cell Distribution Width 15 % (10-15); White Blood Count 2.8 10^3/uL (3.5-10.8)
[2022-04-22 13:14] LABS: High Sens Troponin Baseline 12 pg/mL (<15)
[2022-04-22 13:18] LABS: INR 1.07 (0.89-1.11)
[2022-04-22 13:55] LABS: Albumin 4.1 g/dL (3.2-5.2); CO2 Carbon Dioxide 25 mmol/L (22-32); Calcium 9.8 mg/dL (8.6-10.3); Chloride 106 mmol/L (101-111); Sodium 139 mmol/L (135-145)
[2022-04-22 13:58] LABS: Anion Gap 8 mmol/L (2-11)
[2022-04-22 14:01] LABS: ALT 10 U/L (7-52); Albumin/Globulin Ratio 1.8 (1-3); Alkaline Phosphatase 64 U/L (35-149); Blood Urea Nitrogen 28 mg/dL (6-24); Globulin 2.3 g/dL (2-4); Glucose 100 mg/dL (70-100); Total Protein 6.4 g/dL (6.4-8.9); eGFR CKD-EPI 87.9 (>60)
[2022-04-22 14:03] LABS: High Sensitivity Troponin 1 Hr 13 pg/mL (<15)
[2022-04-22 14:25] LABS: Urine Appearance Clear; Urine Bilirubin Negative (Negative); Urine Blood Negative (Negative); Urine Color Yellow; Urine Glucose Negative (Negative); Urine Ketones Negative (Negative); Urine Nitrite Negative (Negative); Urine Protein 2+ (100 mg/dL) (Negative); Urine Urobilinogen 0.2 (Negative) (Negative)
[2022-04-22 14:25] LABS: TSH Ultra Thyroid Stim Horm 2.68 mcIU/mL (0.34-5.60)
[2022-04-22 14:40] LABS: Urine Bacteria Absent (Absent); Urine Red Blood Cell Trace(0-2/hpf) (Absent); Urine Squamous Epithelial Cell Present (Absent); Urine White Blood Cell Trace(0-5/hpf) (Absent)
[2022-04-22 14:57] LABS: ABS Lymphocytes 0.5 10^3/ul (1.0-4.8); ABS Monocytes 0.3 10^3/ul (0-0.8); ABS Neutrophils 2.1 10^3/ul (1.5-7.7); Eosinophil % 0.7 %; Lymphocyte % 16.6 %; Mean Platelet Volume 9.3 fL (7.4-10.4); Nucleated Red Blood Cells % 0.1; Platelet Count 88 10^3/uL (150-450)
[2022-04-22 15:39] LABS: Magnesium 2.3 mg/dL (1.9-2.7); Potassium Redraw 4.8 mmol/L (3.5-5.0)
[2022-04-22] MEDS ORDERED: hydrALAZINE 20 mg/ml 1 ML Vial IV IV SLOW PU PRN (15:55)
[2022-04-22 16:57] LABS: C Reactive Protein 2.31 mg/L (<8.01)
[2022-04-22] MEDS ORDERED: Albuterol HFA INHALER 8 gm MDI INH PRN (17:08)
[2022-04-23] MEDS: Mometasone/Formoter 100/5 MDI INH SCH ×3 (02:06→19:17)
[2022-04-23 05:39] LABS: ABS Lymphocytes 0.7 10^3/ul (1.0-4.8); ABS Monocytes 0.5 10^3/ul (0-0.8); ABS Neutrophils 2.2 10^3/ul (1.5-7.7); Eosinophil % 0.1 %; Hematocrit 35 % (35-47); Hemoglobin 11.5 g/dL (12.0-16.0); Lymphocyte % 19.9 %; Mean Corpuscular HGB Conc 33 g/dL (31-36); Mean Corpuscular Hemoglobin 29 pg (27-31); Mean Corpuscular Volume 87 fL (80-97); Mean Platelet Volume 8.6 fL (7.4-10.4); Nucleated Red Blood Cells % 0.2; Platelet Count 69 10^3/uL (150-450); Red Blood Count 3.99 10^6 /uL (3.70-4.87); Red Cell Distribution Width 14 % (10-15); White Blood Count 3.3 10^3/uL (3.5-10.8)
[2022-04-23 06:03] LABS: Potassium 3.9 mmol/L (3.5-5.0)
[2022-04-23 06:04] LABS: Calcium 9.3 mg/dL (8.6-10.3); eGFR CKD-EPI 90.7 (>60)
[2022-04-23] MEDS ORDERED: ceFAZolin VIAL 1 GM in NS *SYRINGE* 10 ML IVPB ONE (08:29)
[2022-04-23] MEDS ORDERED: ceFAZolin 2 GM in NS PREMIX 2 GM/100 ML BAG IVPB ONE (08:29)
[2022-04-23] MEDS ORDERED: ceFAZolin VIAL 1 GM in NS 0.9% 50 ML 50 ML IVPB ONE (08:29)
[2022-04-23] MEDS ORDERED: NS 0.9% 1000 ml BAG 1,000 ML IV SCH (08:30)
[2022-04-23] MEDS ORDERED: fentaNYL 100 mcg/2 ml 50 MCG/ML VIAL ONE (13:38)
[2022-04-23] MEDS ORDERED: Midazolam 5 mg/5 ml VIAL 1 mg/ml 5 ml VIAL (5 mg) ONE (13:38)
[2022-04-23] MEDS ORDERED: Lidocaine 1% VIAL 10 MG/ML VIAL ONE (13:38)
[2022-04-23] MEDS ORDERED: ceFAZolin VIAL 1 GM in NS 0.9% 50 ML 50 ML IVPB SCH (16:00)
[2022-04-23] MEDS: ceFAZolin 1 GM X 3 DOSES POST-OP Q8H (AddVan) IVPB SCH (20:22)
[2022-04-23] MEDS ORDERED: Acetaminophen IV 1 GM/100ML 1,000 MG/100 ML BAG IV ONE (23:17)
[2022-04-24] MEDS: ceFAZolin 1 GM X 3 DOSES POST-OP Q8H (AddVan) IVPB SCH ×2 (04:21→11:56)
[2022-04-24 06:10] LABS: ABS Lymphocytes 0.5 10^3/ul (1.0-4.8); ABS Monocytes 0.4 10^3/ul (0-0.8); Eosinophil % 0.2 %; Hematocrit 37 % (35-47); Hemoglobin 11.9 g/dL (12.0-16.0); Lymphocyte % 15.8 %; Mean Corpuscular HGB Conc 32 g/dL (31-36); Mean Corpuscular Hemoglobin 28 pg (27-31); Mean Corpuscular Volume 87 fL (80-97); Nucleated Red Blood Cells % 0.3; Platelet Count 57 10^3/uL (150-450); Red Blood Count 4.24 10^6 /uL (3.70-4.87); Red Cell Distribution Width 15 % (10-15); White Blood Count 2.9 10^3/uL (3.5-10.8)
[2022-04-24 06:40] LABS: Calcium 9.2 mg/dL (8.6-10.3); Magnesium 2.1 mg/dL (1.9-2.7); Potassium 3.8 mmol/L (3.5-5.0); eGFR CKD-EPI 89.6 (>60)
[2022-04-24] MEDS: Mometasone/Formoter 100/5 MDI INH SCH (06:52)
[2022-04-24] MEDS ORDERED: Furosemide 20 mg/2 ml IV VIAL IV ONE (11:09)
[2022-04-24 11:23] VITALS: BP 167/43
== END 2022-04-24 14:13 | disposition home or self-care (01) | DRG 242 ==
LOC: EDHOLD 11:19 → ED 11:19 → SUATTDRO 15:44 → EDHOLD 21:13 → MEDTELE 22:04
PROVIDERS: ADMIT Internal Medicine; ATTEND Internal Medicine